=== PATIENT | male | born 1940 | race African-American/Black ===

== ENCOUNTER 2021-10-02 16:44 | Inpatient (IN) | payer MEDICARE, MEDICAID ==
[~2021-10-02] VITALS: Ht 167.6 cm; Wt 46.3 kg
[2021-10-02] MEDS ORDERED: PIPERACILLIN/TAZ 3.375G PREMIX 50 ML IV ONE (19:00)
[2021-10-02] MEDS ORDERED: SODIUM CHLORIDE 0.9% 1000ML BAG (SEPSIS BOLUS) IV ONE (19:00)
[2021-10-02] MEDS ORDERED: VANCOMYCIN 1 G PREMIX 200 ML IV ONE (19:00)
[2021-10-02 19:41] LABS: BASOPHILS % 0.1 % (0.0-2.0); EOSINOPHILS % 0.1 % (0.0-5.0); HEMATOCRIT. 40.8 % (42.0-52.0); HEMOGLOBIN. 13.1 g/dL (14.0-18.0); LYMPHOCYTES % 9.1 % (20.0-50.0); MEAN CORPUSCULAR HEMOGLOBIN 32.5 pg (28.0-32.0); MEAN CORPUSCULAR VOLUME 101.4 fL (80.0-94.0); MEAN PLATELET VOLUME 11.2 fl (7.4-10.4); MONOCYTES % 3.3 % (2.0-8.0); NEUTROPHILS % 87.4 % (40.0-76.0); PLATELET 237 x1000/uL (130-400); RED BLOOD CELL COUNT 4.02 mill/uL (4.7-6.1); RED CELL DISTRIBUTION WIDTH 15.6 % (11.6-14.6)
[2021-10-02 19:47] LABS: CHLORIDE 122 mEq/L (98-107)
[2021-10-02 19:50] LABS: PROTHROMBIN TIME 10.8 sec (9.6-11.0)
[2021-10-02] MEDS ORDERED: INSULIN REGULAR (HUMULIN R) 300UNITS/3ML VIAL SUBCUT ONE (22:45)
[2021-10-02] MEDS ORDERED: ACETAMINOPHEN 650MG SUPP PR PRN (23:15)
[2021-10-03] MEDS ORDERED: SODIUM CHLORIDE 0.45% 1,000 ML IV ONE
[2021-10-03] MEDS ORDERED: CEFEPIME 1,000 MG in DEXTROSE 5% WATER 50 ML IV SCH
[2021-10-03 03:46] LABS: BASOPHILS % 0.1 % (0.0-2.0); HEMATOCRIT. 37.1 % (42.0-52.0); HEMOGLOBIN. 11.6 g/dL (14.0-18.0); LYMPHOCYTES % 7.2 % (20.0-50.0); MEAN CORPUSCULAR VOLUME 102.2 fL (80.0-94.0); MEAN PLATELET VOLUME 11.5 fl (7.4-10.4); MONOCYTES % 3.1 % (2.0-8.0); NEUTROPHILS % 89.6 % (40.0-76.0); PLATELET 201 x1000/uL (130-400); RED BLOOD CELL COUNT 3.63 mill/uL (4.7-6.1); RED CELL DISTRIBUTION WIDTH 15.7 % (11.6-14.6)
[2021-10-03 06:29] LABS: BG BASE EXCESS -2.1 mmol/L (-2.0-2.0); BG CARBOXYHEMOGLOBIN 0.3 % (0.5-1.5); BG DEOXYHEMOGLOBIN 0.5 % (0.0-5.0); BG FRACTION INSPIRED OXYGEN 100; BG HCO3 ACT 22.9 mmol/L (22.0-26.0); BG METHEMOGLOBIN 0.3 % (0.0-1.5); BG OXYGEN SATURATION 99.5 % (92.0-98.5); BG OXYHEMOGLOBIN 98.9 % (94.0-97.0); BG PCO2 40.3 mmHg (35.0-45.0); BG PH 7.373 (7.350-7.450); BG SAMPLE SITE LEFT RADIAL; BG TOTAL HEMOGLOBIN 12.7 g/dL (12.0-18.0); BG VENT MODE MASK - NRB
[2021-10-03] MEDS: BLOOD SUGAR DIAGNOSTIC STRIP TEST SCH ×5 (06:57→21:23)
[2021-10-03] MEDS: INSULIN LISPRO 100 UNITS/ML SUBCUT SCH ×4 (07:01→21:00)
[2021-10-03 08:30] LABS: BG SAMPLE SITE Left Radial
[2021-10-03 08:31] LABS: BG FRACTION INSPIRED OXYGEN 100; BG VENT MODE MASK-NRB
[2021-10-03 08:32] LABS: BG PCO2 44.1 mmHg (35.0-45.0); BG PH 7.357 (7.350-7.450)
[2021-10-03 08:33] LABS: BG BASE EXCESS -1.4 mmol/L (-2.0-2.0); BG HCO3 ACT 24.2 mmol/L (22.0-26.0); BG PO2 295.9 mmHg (75.0-100.0); BG TOTAL HEMOGLOBIN 12.7 g/dL (12.0-18.0)
[2021-10-03 08:34] LABS: BG CARBOXYHEMOGLOBIN 0.3 % (0.5-1.5); BG DEOXYHEMOGLOBIN 0.5 % (0.0-5.0); BG METHEMOGLOBIN 0.3 % (0.0-1.5); BG OXYGEN SATURATION 99.5 % (92.0-98.5); BG OXYHEMOGLOBIN 98.9 % (94.0-97.0)
[2021-10-03 11:00] VITALS: BP 116/62
[2021-10-03] MEDS: DEXTROSE 5% WATER 1,000 ML IV SCH (11:15)
[2021-10-03] MEDS ORDERED: VANCOMYCIN 750 MG PREMIX 150 ML IV SCH (18:00)
[2021-10-03 20:00] VITALS: BP 95/40
[2021-10-03 22:00] VITALS: BP 115/63
[2021-10-04] VITALS (12 sets, daily range): BP systolic 106–135; BP diastolic 44–82
[2021-10-04] MEDS: CEFEPIME 1,000 MG in DEXTROSE 5% WATER 50 ML IV SCH (00:30)
[2021-10-04] MEDS: DEXTROSE 5% WATER 1,000 ML IV SCH ×2 (05:28→23:37)
[2021-10-04 06:21] LABS: EOSINOPHILS % 0.4 % (0.0-5.0); HEMATOCRIT. 37.2 % (42.0-52.0); LYMPHOCYTES % 9.2 % (20.0-50.0); MEAN CORPUSCULAR HEMOGLOBIN 32.8 pg (28.0-32.0); MEAN PLATELET VOLUME 11.7 fl (7.4-10.4); MONOCYTES % 3.4 % (2.0-8.0); PLATELET 171 x1000/uL (130-400); RED BLOOD CELL COUNT 3.65 mill/uL (4.7-6.1)
[2021-10-04 06:29] LABS: CHLORIDE 122 mEq/L (98-107)
[2021-10-04 06:34] LABS: PHOSPHORUS 2.8 mg/dL (2.5-4.9)
[2021-10-04] MEDS: BLOOD SUGAR DIAGNOSTIC STRIP TEST SCH ×4 (07:30→20:26)
[2021-10-04] MEDS: INSULIN LISPRO 100 UNITS/ML SUBCUT SCH ×4 (08:51→20:27)
[2021-10-04] MEDS ORDERED: INSULIN GLARGINE UD 100 UNITS/ML SYR SUBCUT SCH ×2 (10:00→11:00)
[2021-10-04] MEDS ORDERED: LIDOCAINE HCL 2% JELLY 5ML ONE (12:21)
[2021-10-04] MEDS ORDERED: LIDOCAINE HCL 1% 30ML VIAL (10MG/ML) ONE (12:21)
[2021-10-04] MEDS: VANCOMYCIN 500 MG PREMIX 100 ML IV SCH ×2 (13:29→23:37)
[2021-10-04] MEDS: PANTOPRAZOLE SODIUM 40 MG/VIAL IV SCH ×2 (15:38→20:26)
[2021-10-04 22:06] LABS: CHLORIDE 122 mEq/L (98-107)
[2021-10-05] VITALS (11 sets, daily range): BP systolic 106–138; BP diastolic 47–79
[2021-10-05] MEDS: CEFEPIME 1,000 MG in DEXTROSE 5% WATER 50 ML IV SCH ×2 (00:40→23:53)
[2021-10-05 07:16] LABS: CHLORIDE 121 mEq/L (98-107)
[2021-10-05 07:18] LABS: PARTIAL THROMBOPLASTIN TIME 29.3 sec (23.4-31.0); PROTHROMBIN TIME 10.9 sec (9.6-11.0)
[2021-10-05 07:19] LABS: BASOPHILS % 0.1 % (0.0-2.0); EOSINOPHILS % 0.5 % (0.0-5.0); HEMATOCRIT. 33.3 % (42.0-52.0); HEMOGLOBIN. 11.1 g/dL (14.0-18.0); LYMPHOCYTES % 12.5 % (20.0-50.0); MEAN CORPUSCULAR HEMOGLOBIN 33.1 pg (28.0-32.0); MEAN CORPUSCULAR VOLUME 99.7 fL (80.0-94.0); MEAN PLATELET VOLUME 11.6 fl (7.4-10.4); MONOCYTES % 4.4 % (2.0-8.0); NEUTROPHILS % 82.5 % (40.0-76.0); PLATELET 160 x1000/uL (130-400); RED BLOOD CELL COUNT 3.34 mill/uL (4.7-6.1); RED CELL DISTRIBUTION WIDTH 14.3 % (11.6-14.6)
[2021-10-05] MEDS: BLOOD SUGAR DIAGNOSTIC STRIP TEST SCH ×4 (07:30→23:53)
[2021-10-05] MEDS: INSULIN LISPRO 100 UNITS/ML SUBCUT SCH ×3 (08:00→17:46)
[2021-10-05] MEDS: DEXTROSE 50% WATER 50ML SYRINGE IV PRN ×2 (08:03→17:47)
[2021-10-05] MEDS ORDERED: POTASSIUM PHOS,M-BASIC-D-BASIC 15 MMOL in DEXT 5% WATER 245 ML IV ONE (09:30)
[2021-10-05] MEDS: PANTOPRAZOLE SODIUM 40 MG/VIAL IV SCH ×2 (09:43→21:33)
[2021-10-05] MEDS ORDERED: INSULIN GLARGINE UD 100 UNITS/ML SYR SUBCUT SCH (10:00)
[2021-10-05] MEDS: VANCOMYCIN 500 MG PREMIX 100 ML IV SCH (13:04)
[2021-10-05] MEDS: DEXTROSE 5% WATER 1,000 ML IV SCH (13:04)
[2021-10-05] MEDS ORDERED: CEFAZOLIN 1000MG PREMIX 50 ML IV SCH (15:00)
[2021-10-05] MEDS ORDERED: DEXTROSE 50% WATER 50ML SYRINGE IV PRN (20:15)
[2021-10-06] VITALS (9 sets, daily range): BP systolic 111–160; BP diastolic 50–78
[2021-10-06] MEDS: VANCOMYCIN 500 MG PREMIX 100 ML IV SCH (00:53)
[2021-10-06] MEDS: DEXTROSE 5% WATER 1,000 ML IV SCH (05:18)
[2021-10-06] MEDS: BLOOD SUGAR DIAGNOSTIC STRIP TEST SCH ×3 (06:02→18:02)
[2021-10-06] MEDS: INSULIN LISPRO 100 UNITS/ML SUBCUT SCH ×3 (06:15→18:14)
[2021-10-06 06:35] LABS: BASOPHILS % 0.1 % (0.0-2.0); EOSINOPHILS % 0.8 % (0.0-5.0); HEMOGLOBIN. 11.7 g/dL (14.0-18.0); LYMPHOCYTES % 16.4 % (20.0-50.0); MEAN CORPUSCULAR HEMOGLOBIN 32.8 pg (28.0-32.0); MEAN CORPUSCULAR VOLUME 98.5 fL (80.0-94.0); MEAN PLATELET VOLUME 11.6 fl (7.4-10.4); MONOCYTES % 4.6 % (2.0-8.0); NEUTROPHILS % 78.1 % (40.0-76.0); PLATELET 156 x1000/uL (130-400); RED BLOOD CELL COUNT 3.56 mill/uL (4.7-6.1); RED CELL DISTRIBUTION WIDTH 14.2 % (11.6-14.6)
[2021-10-06] MEDS ORDERED: INSULIN LISPRO 100 UNITS/ML SUBCUT SCH (08:00)
[2021-10-06 08:51] LABS: CHLORIDE 113 mEq/L (98-107)
[2021-10-06 09:01] LABS: PHOSPHORUS 2.4 mg/dL (2.5-4.9)
[2021-10-06] MEDS: PANTOPRAZOLE SODIUM 40 MG/VIAL IV SCH ×2 (09:09→21:21)
[2021-10-06] MEDS ORDERED: AMLODIPINE 5MG TABLET NG NR (10:45)
[2021-10-06] MEDS ORDERED: CLONIDINE 0.2MG TABLET NG NR (10:45)
[2021-10-06] MEDS ORDERED: POTASSIUM PHOS,M-BASIC-D-BASIC 15 MMOL in DEXT 5% WATER 245 ML IV NR (11:00)
[2021-10-06] MEDS ORDERED: SORBITOL 70% SOLN 30ML PO NR (12:15)
[2021-10-06] MEDS: ZINC SULFATE 220 MG ( 50 ) CAPSULE PO SCH (12:46)
[2021-10-06] MEDS: ASCORBIC ACID 500 MG TABLET PO SCH (12:46)
[2021-10-06] MEDS: VANCOMYCIN 750 MG PREMIX 150 ML IV SCH (15:40)
[2021-10-06] MEDS: DOCUSATE SODIUM SUGAR FREE 100MG/10ML UDC NG SCH (17:00)
[2021-10-06] MEDS: SENNOSIDES/DOCUSATE SOD 8.6/50MG TABLET PO SCH (21:21)
[2021-10-06] MEDS: METOCLOPRAMIDE HCL 10MG/2ML VIAL IV SCH (23:53)
[2021-10-07] VITALS: BP 115/54
[2021-10-07] MEDS: BLOOD SUGAR DIAGNOSTIC STRIP TEST SCH ×5 (00:04→23:53)
[2021-10-07] MEDS: INSULIN LISPRO 100 UNITS/ML SUBCUT SCH ×4 (00:08→17:30)
[2021-10-07] MEDS: CEFEPIME 1,000 MG in DEXTROSE 5% WATER 50 ML IV SCH ×2 (00:10→23:53)
[2021-10-07] MEDS: DEXTROSE 5% WATER 1,000 ML IV SCH (00:47)
[2021-10-07 04:00] VITALS: BP 136/53
[2021-10-07] MEDS: METOCLOPRAMIDE HCL 10MG/2ML VIAL IV SCH ×4 (05:53→23:53)
[2021-10-07 08:00] VITALS: BP 133/79
[2021-10-07 08:35] LABS: BASOPHILS % 0.5 % (0.0-2.0); EOSINOPHILS % 0.6 % (0.0-5.0); HEMATOCRIT. 37.7 % (42.0-52.0); HEMOGLOBIN. 12.6 g/dL (14.0-18.0); LYMPHOCYTES % 11.8 % (20.0-50.0); MEAN CORPUSCULAR HEMOGLOBIN 32.8 pg (28.0-32.0); MEAN CORPUSCULAR VOLUME 98.1 fL (80.0-94.0); MONOCYTES % 4.3 % (2.0-8.0); NEUTROPHILS % 82.8 % (40.0-76.0); RED BLOOD CELL COUNT 3.84 mill/uL (4.7-6.1); RED CELL DISTRIBUTION WIDTH 14.1 % (11.6-14.6)
[2021-10-07] MEDS: DOCUSATE SODIUM SUGAR FREE 100MG/10ML UDC NG SCH ×2 (08:42→17:29)
[2021-10-07] MEDS: ZINC SULFATE 220 MG ( 50 ) CAPSULE PO SCH (08:42)
[2021-10-07] MEDS: ASCORBIC ACID 500 MG TABLET PO SCH (08:42)
[2021-10-07] MEDS: PANTOPRAZOLE SODIUM 40 MG/VIAL IV SCH ×2 (08:42→21:02)
[2021-10-07] MEDS: VANCOMYCIN 750 MG PREMIX 150 ML IV SCH (08:57)
[2021-10-07 09:26] LABS: CHLORIDE 112 mEq/L (98-107)
[2021-10-07 09:37] LABS: PHOSPHORUS 2.2 mg/dL (2.5-4.9)
[2021-10-07 12:00] VITALS: BP 132/54
[2021-10-07 16:00] VITALS: BP 138/54
[2021-10-07 20:00] VITALS: BP 151/90
[2021-10-07] MEDS: SENNOSIDES/DOCUSATE SOD 8.6/50MG TABLET PO SCH (21:02)
[2021-10-08] VITALS (7 sets, daily range): BP systolic 139–169; BP diastolic 59–75
[2021-10-08] MEDS: INSULIN LISPRO 100 UNITS/ML SUBCUT SCH ×4 (00:16→17:26)
[2021-10-08] MEDS: METOCLOPRAMIDE HCL 10MG/2ML VIAL IV SCH ×3 (05:11→17:25)
[2021-10-08] MEDS: BLOOD SUGAR DIAGNOSTIC STRIP TEST SCH ×3 (05:12→17:39)
[2021-10-08 05:53] LABS: PROTHROMBIN TIME 10.6 sec (9.6-11.0)
[2021-10-08 06:14] LABS: BASOPHILS % 0.3 % (0.0-2.0); EOSINOPHILS % 0.7 % (0.0-5.0); HEMATOCRIT. 35.8 % (42.0-52.0); LYMPHOCYTES % 13.5 % (20.0-50.0); MEAN CORPUSCULAR HEMOGLOBIN 32.4 pg (28.0-32.0); MEAN CORPUSCULAR VOLUME 96.8 fL (80.0-94.0); MEAN PLATELET VOLUME 12.2 fl (7.4-10.4); MONOCYTES % 5.1 % (2.0-8.0); NEUTROPHILS % 80.4 % (40.0-76.0); PLATELET 139 x1000/uL (130-400); RED CELL DISTRIBUTION WIDTH 14.3 % (11.6-14.6)
[2021-10-08 07:03] LABS: CHLORIDE 109 mEq/L (98-107)
[2021-10-08 07:12] LABS: PHOSPHORUS 1.5 mg/dL (2.5-4.9)
[2021-10-08] MEDS ORDERED: POTASSIUM PHOS,M-BASIC-D-BASIC 30 MMOL in DEXT 5% WATER 500 ML IV NR (09:00)
[2021-10-08] MEDS: PANTOPRAZOLE SODIUM 40 MG/VIAL IV SCH ×2 (09:15→20:27)
[2021-10-08] MEDS: ZINC SULFATE 220 MG ( 50 ) CAPSULE PO SCH (09:15)
[2021-10-08] MEDS: DOCUSATE SODIUM SUGAR FREE 100MG/10ML UDC NG SCH ×2 (09:15→17:25)
[2021-10-08] MEDS: ASCORBIC ACID 500 MG TABLET PO SCH (09:15)
[2021-10-08] MEDS: SENNOSIDES/DOCUSATE SOD 8.6/50MG TABLET PO SCH (20:25)
[2021-10-09] VITALS: BP 144/59
[2021-10-09] MEDS: METOCLOPRAMIDE HCL 10MG/2ML VIAL IV SCH ×5 (00:26→23:56)
[2021-10-09] MEDS: CEFEPIME 1,000 MG in DEXTROSE 5% WATER 50 ML IV SCH (00:26)
[2021-10-09] MEDS: INSULIN LISPRO 100 UNITS/ML SUBCUT SCH ×5 (00:27→23:57)
[2021-10-09] MEDS: BLOOD SUGAR DIAGNOSTIC STRIP TEST SCH ×5 (00:28→23:58)
[2021-10-09 04:00] VITALS: BP 166/76
[2021-10-09 06:28] LABS: BASOPHILS % 0.2 % (0.0-2.0); EOSINOPHILS % 0.9 % (0.0-5.0); HEMATOCRIT. 33.7 % (42.0-52.0); HEMOGLOBIN. 11.3 g/dL (14.0-18.0); LYMPHOCYTES % 17.1 % (20.0-50.0); MEAN CORPUSCULAR HEMOGLOBIN 32.3 pg (28.0-32.0); MEAN CORPUSCULAR VOLUME 96.2 fL (80.0-94.0); MEAN PLATELET VOLUME 12.3 fl (7.4-10.4); MONOCYTES % 6.7 % (2.0-8.0); NEUTROPHILS % 75.1 % (40.0-76.0); PLATELET 124 x1000/uL (130-400); RED CELL DISTRIBUTION WIDTH 14.3 % (11.6-14.6)
[2021-10-09 06:32] LABS: PROTHROMBIN TIME 10.6 sec (9.6-11.0)
[2021-10-09 06:41] LABS: CHLORIDE 105 mEq/L (98-107)
[2021-10-09 07:08] LABS: PHOSPHORUS 2.6 mg/dL (2.5-4.9)
[2021-10-09 08:00] VITALS: BP 153/72
[2021-10-09] MEDS: DOCUSATE SODIUM SUGAR FREE 100MG/10ML UDC NG SCH ×2 (09:00→17:59)
[2021-10-09] MEDS: PANTOPRAZOLE SODIUM 40 MG/VIAL IV SCH ×2 (09:00→21:17)
[2021-10-09] MEDS: ASCORBIC ACID 500 MG TABLET PO SCH (09:00)
[2021-10-09] MEDS: ZINC SULFATE 220 MG ( 50 ) CAPSULE PO SCH (09:00)
[2021-10-09 12:00] VITALS: BP 148/68
[2021-10-09] MEDS: AMLODIPINE 5MG TABLET PO SCH (13:30)
[2021-10-09] MEDS ORDERED: ETOMIDATE 2MG/ML 10ML VIAL IV ONE (15:36)
[2021-10-09] MEDS ORDERED: PROPOFOL 200MG/20ML VIAL IV ONE (15:39)
[2021-10-09 16:00] VITALS: BP 149/70
[2021-10-09] MEDS: SUCRALFATE 1 G/10 ML UDC GT SCH ×2 (17:59→23:56)
[2021-10-09 20:00] VITALS: BP 137/66
[2021-10-09] MEDS: SENNOSIDES/DOCUSATE SOD 8.6/50MG TABLET PO SCH (21:17)
[2021-10-10] VITALS: BP 150/85
[2021-10-10 04:00] VITALS: BP 138/70
[2021-10-10] MEDS: SUCRALFATE 1 G/10 ML UDC GT SCH ×3 (05:54→17:29)
[2021-10-10] MEDS: METOCLOPRAMIDE HCL 10MG/2ML VIAL IV SCH ×3 (05:54→18:00)
[2021-10-10] MEDS: BLOOD SUGAR DIAGNOSTIC STRIP TEST SCH ×3 (05:55→18:32)
[2021-10-10] MEDS: INSULIN LISPRO 100 UNITS/ML SUBCUT SCH ×3 (05:55→18:47)
[2021-10-10 06:32] LABS: BASOPHILS % 0.2 % (0.0-2.0); EOSINOPHILS % 1.1 % (0.0-5.0); HEMATOCRIT. 35.9 % (42.0-52.0); HEMOGLOBIN. 11.9 g/dL (14.0-18.0); LYMPHOCYTES % 17.5 % (20.0-50.0); MEAN CORPUSCULAR HEMOGLOBIN 32.2 pg (28.0-32.0); MEAN CORPUSCULAR VOLUME 96.9 fL (80.0-94.0); MEAN PLATELET VOLUME 11.8 fl (7.4-10.4); MONOCYTES % 6.8 % (2.0-8.0); NEUTROPHILS % 74.4 % (40.0-76.0); PLATELET 114 x1000/uL (130-400); RED CELL DISTRIBUTION WIDTH 14.8 % (11.6-14.6)
[2021-10-10 06:58] LABS: PROTHROMBIN TIME 11.1 sec (9.6-11.0)
[2021-10-10 07:20] LABS: CHLORIDE 101 mEq/L (98-107)
[2021-10-10 07:35] LABS: PHOSPHORUS 2.5 mg/dL (2.5-4.9)
[2021-10-10 08:00] VITALS: BP 134/54
[2021-10-10] MEDS: PANTOPRAZOLE SODIUM 40 MG/VIAL IV SCH (08:37)
[2021-10-10] MEDS: DOCUSATE SODIUM SUGAR FREE 100MG/10ML UDC NG SCH ×2 (08:37→17:29)
[2021-10-10] MEDS: ZINC SULFATE 220 MG ( 50 ) CAPSULE PO SCH (08:37)
[2021-10-10] MEDS: ASCORBIC ACID 500 MG TABLET PO SCH (08:38)
[2021-10-10] MEDS: AMLODIPINE 5MG TABLET PO SCH (08:38)
[2021-10-10 12:00] VITALS: BP 132/57
[2021-10-10 16:00] VITALS: BP 155/99
[2021-10-10 17:44] VITALS: BP 136/52
== END 2021-10-10 23:46 | disposition home health service (06) | DRG 393 ==
LOC: ER 16:44 → MICUSO 22:41 → EDBEDREQTM 23:02 → EDBEDREQSVC 23:02 → EDBEDREQ 23:02 → 5EST 10-03 11:00
PROVIDERS: ADMIT Family Medicine Adult Medicine; ATTEND Family Medicine Adult Medicine
PROC: 0DJ0XZZ Inspection of Upper Intestinal Tract, External Approach (ICD-10-PCS; 2021-10-04)
PROC: 0DB78ZX Excision of Stomach, Pylorus, Via Natural or Artificial Opening Endoscopic, Diagnostic (ICD-10-PCS; principal; 2021-10-09)
PROC: 0DH63UZ Insertion of Feeding Device into Stomach, Percutaneous Approach (ICD-10-PCS; 2021-10-09)
DX: K94.23 Gastrostomy malfunction (principal); J96.01 Acute respiratory failure with hypoxia; J69.0 Pneumonitis due to inhalation of food and vomit; S22.42XA Multiple fractures of ribs, left side, initial encounter for closed fracture; E44.0 Moderate protein-calorie malnutrition; N17.9 Acute kidney failure, unspecified; E87.0 Hyperosmolality and hypernatremia; G93.40 Encephalopathy, unspecified; Z68.1 Body mass index [BMI] 19.9 or less, adult; I10 Essential (primary) hypertension; R13.10 Dysphagia, unspecified; R79.89 Other specified abnormal findings of blood chemistry; D64.9 Anemia, unspecified; L89.156 Pressure-induced deep tissue damage of sacral region; L60.2 Onychogryphosis; E11.51 Type 2 diabetes mellitus with diabetic peripheral angiopathy without gangrene; Z66 Do not resuscitate; K29.70 Gastritis, unspecified, without bleeding; L85.3 Xerosis cutis; Y83.8 Other surgical procedures as the cause of abnormal reaction of the patient, or of later complication, without mention of misadventure at the time of the procedure; Y82.8 Other medical devices associated with adverse incidents; Z20.822 Contact with and (suspected) exposure to COVID-19; X58.XXXA Exposure to other specified factors, initial encounter; Z86.73 Personal history of transient ischemic attack (TIA), and cerebral infarction without residual deficits; Z82.49 Family history of ischemic heart disease and other diseases of the circulatory system; Z74.01 Bed confinement status; Y93.89 Activity, other specified; Y92.89 Other specified places as the place of occurrence of the external cause; Y99.8 Other external cause status; Z79.899 Other long term (current) drug therapy
CPT/HCPCS: 36415; 36600; 49450; 71045; 71250; 74018; 76770; 80048; 80053; 80202; 82040; 82375; 82805; 82962; 83036; 83605; 83735; 83880; 84100; 84134; 84145; 84484; 85025; 87426; 88305; 88312; 88313; 93923; 99291; C1893; C9113; J0690; J0692; J1815; J2543; J2704; J2765; J3370; J3490; J7060; J7070